=== PATIENT | male | born 1990 | race African-American/Black ===

== ENCOUNTER 2017-09-27 00:25 | Emergency (ER) | payer SELFPAY ==
[2017-09-27 01:27] LABS: ABS Basophils 0.1 10^3/ul (0-0.2); ABS Eosinophils 0 10^3/ul (0-0.6); ABS Lymphocytes 1.6 10^3/ul (1.0-4.8); ABS Monocytes 1.1 10^3/ul (0-0.8); ABS Neutrophils 10.6 10^3/ul (1.5-7.7); ABS Nucleated RBC 0 10^3/ul; Eosinophil % 0.2 % (0-6); Hematocrit 42 % (42-52); Hemoglobin 13.9 g/dl (14.0-18.0); Mean Corpuscular HGB Conc 33 g/dl (31-36); Mean Corpuscular Hemoglobin 26 pg (27-31); Mean Corpuscular Volume 78 fL (80-94); Mean Platelet Volume 7.5 um3 (7.4-10.4); Nucleated Red Blood Cells % 0.1; Platelet Count 219 10^3/ul (150-450); Red Blood Count 5.36 10^6/ul (4.00-5.40); Red Cell Distribution Width 14 % (10.5-15); White Blood Count 13.4 10^3/ul (3.5-10.8)
[2017-09-27 01:44] LABS: EGFR Non-African American 95.1 (>60)
[2017-09-27 03:06] LABS: Urine Appearance Cloudy; Urine Blood Negative (Negative); Urine Color Yellow; Urine Ketones 2+ (Negative); Urine Protein 1+(30 mg/dL) (Negative); Urine Specific Gravity 1.029 (1.010-1.030); Urine Urobilinogen Negative (Negative)
[2017-09-27] MEDS ORDERED: LORazepam INJ* 2 MG/ML 1 ML VIAL ONE (04:10)
[2017-09-27] MEDS ORDERED: diPHENhydraMINE IV* 50 MG/ML 1 ml VIAL (BENADRYL) ONE (04:10)
[2017-09-27] MEDS ORDERED: Haloperidol INJ IV/IM* 5 MG/ML AMP ONE (04:10)
--- NOTE | 2017-09-27 07:46 | RAD ---
HISTORY: ams COMPARISONS: March 09, 2009 TECHNIQUE: Multiple contiguous axial CT scans were obtained of the head without intravenous contrast. FINDINGS: HEMORRHAGE/INFARCT: There is no hemorrhage or acute infarct. MASSES/SHIFT: There is no mass or shift. EXTRA-AXIAL SPACES: There are no extra-axial fluid collections. SULCI AND VENTRICLES: The sulci and ventricles are normal in size and position for the patient's stated age. CEREBRUM: There are no focal parenchymal abnormalities. BRAINSTEM: There are no focal parenchymal abnormalities. CEREBELLUM: There are no focal parenchymal abnormalities. VESSELS: The vessels are grossly normal. PARANASAL SINUSES: The paranasal sinuses are clear. ORBITS: The orbits are unremarkable. BONES AND SOFT TISSUE: No bone or soft tissue abnormalities are noted. OTHER: None IMPRESSION: NO ACUTE INTRACRANIAL PATHOLOGY.
--- NOTE | 2017-09-27 08:06 | ED ---
Mendel Palacios Natalie, scribed for Hayden Montelongo MD on 09/27/17 at 0213 . Psychiatric Complaint - HPI Summary HPI Summary: The patient is a 26 y/o M presenting to the ED accompanied by parents c/o racing thoughts and God talking to him starting within the past week. The pt states he is feeling wonderful but his parents brought him here because they are concerned because he's "just talking weird." He denies hearing voices, although his parents report that the pt has been talking about demons and higher bennett talking to him, that he needs to get clean and get the devil out. The pt has been in the hospital before. His parents report that he had a somewhat similar psychiatric event approximately five years ago when he was using synthetic marijuana. Pt reports current use of marijuana, but doesn't specify if it's synthetic. His parents also stated that the pt hasn't been sleeping this past week, and he's had significant weight loss. He denies SI and HI, and he is not in any pain. - History Of Current Complaint Chief Complaint: EDMentalHealth Time Seen by Provider: 09/27/17 00:51 Hx Obtained From: Patient, Family/Scrap Shear Operator - parents Onset/Duration: Sudden Onset, Lasting Days, Still Present Timing: Days Severity Initially: Moderate Severity Currently: Moderate Character: Manic Aggravating Factor(s): Nothing Alleviating Factor(s): Nothing Associated Signs And Symptoms: Positive: Paranoid Behavior Has Suicidal: Denies: Thoughts Has Homicidal: Denies: Thoughts Ingestion History: Type/Name Of Drug - marijuana use - Allergies/Home Medications Allergies/Adverse Reactions: Allergies Allergy/AdvReac Type Severity Reaction Status Date / Time No Known Allergies Allergy Verified 09/27/17 00:39 PMH/Surg Hx/FS Hx/Imm Hx Endocrine/Hematology History: Denies: Hx Diabetes Cardiovascular History: Denies: Hx Hypertension Infectious Disease History: No Infectious Disease History: Denies: Traveled Outside the [place] in Last 30 Days - Family History Known Family History: Negative: Cardiac Disease - Social History Alcohol Use: Occasionally Substance Use Type: Reports: Marijuana Substance Use Comment - Amount & Last Used: daily Hx Tobacco Use: Yes Smoking Status (MU): Heavy Every Day Tobacco Smoker Review of Systems Positive: Other - abnormal weight loss Neurological: Other - sleep loss Positive: Other - POSITIVE: God talking to him; NEGATIVE: SI, HI All Other Systems Reviewed And Are Negative: Yes Physical Exam - Summary Physical Exam Summary: Appearance: Well-appearing, no distress, Well-nourished Skin: Warm, color reflects adequate perfusion Head: Normal Head/Face inspection Eyes: EOMI, PERRLA ENT: Normal inspection Neck: Supple, no nodes, no JVD. Respiratory: Lungs clear, Normal breath sounds, no respiratory distress Cardio: RRR, No murmur, pulses normal, brisk capillary refill Abdomen: soft, nontender, Bowel sounds: present Musculoskeletal: Strength Intact/ ROM intact. Neuro: AAOx3, GCS: 15 Psychological: judgement abnormal, thought process abnormal, delusions Triage Information Reviewed: Yes Vital Signs On Initial Exam: Initial Vitals Temp Pulse Resp BP Pulse Ox 98.0 F 94 20 160/94 99 09/27/17 00:36 09/27/17 00:36 09/27/17 00:36 09/27/17 00:36 09/27/17 00:36 Vital Signs Reviewed: Yes Diagnostics - Vital Signs Vital Signs Temp Pulse Resp BP Pulse Ox 09/27/17 00:36 98.0 F 94 20 160/94 99 - Laboratory Lab Results: Lab Results 09/27/17 09/27/17 Range/Units 01:17 01:17 WBC 13.4 H (3.5-10.8) 10^3/ul RBC 5.36 (4.00-5.40) 10^6/ul Hgb 13.9 L (14.0-18.0) g/dl Hct 42 (42-52) % MCV 78 L (80-94) fL MCH 26 L (27-31) pg MCHC 33 (31-36) g/dl RDW 14 (10.5-15) % Plt Count 219 (150-450) 10^3/ul MPV 7.5 (7.4-10.4) um3 Neut % (Auto) 79.1 (38-83) % Lymph % (Auto) 12.0 L (25-47) % [place] % (Auto) 8.2 H (0-7) % Eos % (Auto) 0.2 (0-6) % Baso % (Auto) 0.5 (0-2) % Absolute Neuts (auto) 10.6 H (1.5-7.7) 10^3/ul Absolute Lymphs (auto) 1.6 (1.0-4.8) 10^3/ul Absolute Monos (auto) 1.1 H (0-0.8) 10^3/ul Absolute Eos (auto) 0 (0-0.6) 10^3/ul Absolute Basos (auto) 0.1 (0-0.2) 10^3/ul Absolute Nucleated RBC 0 10^3/ul Nucleated RBC % 0.1 Sodium 138 (135-145) mmol/L Potassium 3.9 (3.5-5.0) mmol/L Chloride 105 (101-111) mmol/L Carbon Dioxide 24 (22-32) mmol/L Anion Gap 9 (2-11) mmol/L BUN 18 (6-24) mg/dL Creatinine 0.95 (0.67-1.17) mg/dL Est GFR ( Amer) 122.3 (>60) Est GFR (Non-Af Amer) 95.1 (>60) BUN/Creatinine Ratio 18.9 (8-20) Glucose 107 H (70-100) mg/dL Calcium 10.0 (8.6-10.3) mg/dL Total Bilirubin 0.70 (0.2-1.0) mg/dL AST 50 H (13-39) U/L ALT 25 (7-52) U/L Alkaline Phosphatase 86 (34-104) U/L Total Protein 7.3 (6.4-8.9) g/dL Albumin 4.8 (3.2-5.2) g/dL Globulin 2.5 (2-4) g/dL Albumin/Globulin Ratio 1.9 (1-3) Salicylates Pending Acetaminophen Pending Serum Alcohol Pending Result Diagrams: 09/27/17 01:17 09/27/17 01:17 Lab Statement: Any lab studies that have been ordered have been reviewed, and results considered in the medical decision making process. - CT Brain CT CT Interpretation: No Acute Changes - Normal exam. ED physician has reviewed this report. CT Interpretation Completed By: Radiologist - EKG 05:32 Cardiac Rate: NL EKG Rhythm: Sinus Rhythm - 73 BPM EKG Interpretation: Nml axes. Nml intervals. No ST or T wave changes. Re-Evaluation - Re-Evaluation First Eval Re-Evaluation Time: 03:05 Change: Worse Comment: Pt becoming more agitated and aggressive. Pt attempting to elope from the ED. Pt will be given IM Haldol and Ativan. Second Eval Re-Evaluation Time: 07:24 Change: Improved Comment: Pt rersting comfortably kin bed. Pt with no acute agitation. Plan for inpatient Psych placement. Course/Dx - Differential Dx/Clinical Impression Differential Diagnosis/HQI/PQRI: Positive: Acute Psychosis, Alcohol Intoxication , Anxiety, Bipolar Disorder, Depression, Schizophrenia Provider Diagnosis: Acute psychosis - Physician Notifications Instructed by Provider To: Admit As Inpatient Reason For Transfer: Patient not appropriate for [facility]. Discharge - Sign-Out/Discharge Documenting (check all that apply): Sign-Out Patient Signing out patient TO: Memo Harden - The pt is a sign-out to Dr. Harden at shift change, awaiting final disposition. - Discharge Plan Condition: Improved Referrals: No Primary Care Phys,NOPCP [Primary Care Provider] - - Billing Disposition and Condition Condition: IMPROVED The documentation as recorded by the Mendel castillo Natalie accurately reflects the service I personally performed and the decisions made by me, Hayden Montelongo MD.
--- NOTE | 2017-09-27 12:06 | PN ---
ED Flex Patient Progress Note Subjective: This is a 26 year-old M who is pending transfer to another psychiatric secondary to ____psychosis . Pt offers no complaints at this time. He had a brain CT for AMS - this appears to be w/o acute findings. Relaued results to pt and parents. He is eating lunch. Objective: Vitals: Most recent vital signs documented below. General NAD, Alert and oriented x3. Heart: rrr S1/S2 Lungs: CTA, BREATHING EASILY ab: +BS Assessment: PSYCHOSIS Plan: Pending psychiatric transfer. will follow up daily _WHILE IN ED____. Vital Signs Temp Pulse Resp BP Pulse Ox 97.7 F 57 14 113/72 100 09/27/17 11:46 09/27/17 11:46 09/27/17 08:20 09/27/17 11:46 09/27/17 08:20 Lab Results - Entire Visit 09/27/17 09/27/17 09/27/17 02:50 02:50 01:17 WBC RBC Hgb Hct MCV MCH MCHC RDW Plt Count MPV Neut % (Auto) Lymph % (Auto) [place] % (Auto) Eos % (Auto) Baso % (Auto) Absolute Neuts (auto) Absolute Lymphs (auto) Absolute Monos (auto) Absolute Eos (auto) Absolute Basos (auto) Absolute Nucleated RBC Nucleated RBC % Sodium 138 Potassium 3.9 Chloride 105 Carbon Dioxide 24 Anion Gap 9 BUN 18 Creatinine 0.95 Est GFR ( Amer) 122.3 Est GFR (Non-Af Amer) 95.1 BUN/Creatinine Ratio 18.9 Glucose 107 H Calcium 10.0 Total Bilirubin 0.70 AST 50 H ALT 25 Alkaline Phosphatase 86 Total Protein 7.3 Albumin 4.8 Globulin 2.5 Albumin/Globulin Ratio 1.9 Urine Color Yellow Urine Appearance Cloudy Urine pH 5.0 Ur Specific [place] 1.029 Urine Protein 1+(30 mg/dl) A Urine Ketones 2+ A Urine Blood Negative Urine Nitrate Negative Urine Bilirubin Negative Urine Urobilinogen Negative Ur Leukocyte Esterase Negative Urine WBC (Auto) Trace(0-5/hpf) Urine RBC (Auto) Trace(0-2/hpf) Ur Squamous Epith Cells Present A Urine Bacteria Absent Hyaline Casts Present A Urine Glucose Negative Salicylates < 2.50 Urine Opiates Screen None detected Acetaminophen < 15 Ur Barbiturates Screen None detected Ur Phencyclidine Scrn None detected Ur Amphetamines Screen None detected U Benzodiazepines Scrn None detected Urine Cocaine Screen None detected U Cannabinoids Screen Presumptive positive A Serum Alcohol < 10 09/27/17 01:17 WBC 13.4 H RBC 5.36 Hgb 13.9 L Hct 42 MCV 78 L MCH 26 L MCHC 33 RDW 14 Plt Count 219 MPV 7.5 Neut % (Auto) 79.1 Lymph % (Auto) 12.0 L [place] % (Auto) 8.2 H Eos % (Auto) 0.2 Baso % (Auto) 0.5 Absolute Neuts (auto) 10.6 H Absolute Lymphs (auto) 1.6 Absolute Monos (auto) 1.1 H Absolute Eos (auto) 0 Absolute Basos (auto) 0.1 Absolute Nucleated RBC 0 Nucleated RBC % 0.1 Sodium Potassium Chloride Carbon Dioxide Anion Gap BUN Creatinine Est GFR ( Amer) Est GFR (Non-Af Amer) BUN/Creatinine Ratio Glucose Calcium Total Bilirubin AST ALT Alkaline Phosphatase Total Protein Albumin Globulin Albumin/Globulin Ratio Urine Color Urine Appearance Urine pH Ur Specific [place] Urine Protein Urine Ketones Urine Blood Urine Nitrate Urine Bilirubin Urine Urobilinogen Ur Leukocyte Esterase Urine WBC (Auto) Urine RBC (Auto) Ur Squamous Epith Cells Urine Bacteria Hyaline Casts Urine Glucose Salicylates Urine Opiates Screen Acetaminophen Ur Barbiturates Screen Ur Phencyclidine Scrn Ur Amphetamines Screen U Benzodiazepines Scrn Urine Cocaine Screen U Cannabinoids Screen Serum Alcohol
[2017-09-27] MEDS ORDERED: KETAMINE HCL* 50 MG/ML 10 ML VIAL ONE (16:38)
[2017-09-27] MEDS: KETAMINE HCL* 50 MG/ML 10 ML VIAL IM ONE ×2 (16:53→16:59)
[2017-09-27] MEDS ORDERED: KETAMINE HCL* 50 MG/ML 10 ML VIAL IV ONE (17:00)
[2017-09-27] MEDS ORDERED: KETAMINE HCL* 50 MG/ML 10 ML VIAL IM ONE (17:00)
--- NOTE | 2017-09-27 17:56 | ED ---
I, Alba Porter, scribed for Memo Harden MD on 09/27/17 at 1704 . Progress - Progress Note Progress Note: Pt became agitated and tried to leave. He required Ketamine medication after not being able to be talked down. Formal involuntary paperwork was signed. - Consult/PCP Time Called: 03:30 Re-Evaluation - Re-Evaluation First Eval Re-Evaluation Time: 03:05 Change: Worse Comment: Pt becoming more agitated and aggressive. Pt attempting to elope from the ED. Pt will be given IM Haldol and Ativan. Second Eval Re-Evaluation Time: 07:24 Change: Improved Comment: Pt rersting comfortably kin bed. Pt with no acute agitation. Plan for inpatient Psych placement. Course/Dx - Course Course Of Treatment: Patient being held for psychosis. No formal paperwork was signed and so involuntary paperwork was signed by me. He is pending bed search for placement for acute psychosis. The patient became more more agitated as he wanted to leave and go outside to smoke. He was threatening to staff members and we felt he posted danger to others. He required medication after rear unable to talk him down. He is to force shown and he agreed to medication. Ketamine intramuscular was given and the patient grew sedate. He is signed out in stable condition to the oncoming ER physician. - Diagnoses Provider Diagnoses: Acute psychosis - Provider Notifications Instructed by Provider To: Admit As Inpatient Reason For Transfer: Patient not appropriate for [facility]. Discharge - Sign-Out/Discharge Documenting (check all that apply): Sign-Out Patient Signing out patient TO: Hayden Montelongo Receiving patient FROM: Memo Harden - Discharge Plan Condition: Stable Referrals: No Primary Care Phys,NOPCP [Primary Care Provider] - - Billing Disposition and Condition Condition: STABLE The documentation as recorded by the German castillo Jade accurately reflects the service I personally performed and the decisions made by me, Memo Harden MD.
[2017-09-28] MEDS ORDERED: Mouth Piece, Nicotine* 1 EACH CARTRIDGE INH PRN (09:41)
[2017-09-28] MEDS ORDERED: Nicotine Inhaler* 10 MG AMP INH PRN (09:41)
[2017-09-28] MEDS ORDERED: Mouth Piece, Nicotine* 1 EACH CARTRIDGE ONE (09:44)
[2017-09-28] MEDS ORDERED: Nicotine Inhaler* 10 MG AMP ONE (09:44)
--- NOTE | 2017-09-28 10:30 | ED ---
German Palacios Jade, scribed for Oh Gustafson MD on 09/28/17 at 1027 . Progress - Progress Note Progress Note: Pt is awake and alert. He is now medically cleared. General: well-appearing, no pain distress Skin: warm, color reflects adequate perfusion, dry Head: normal Eyes: EOMI, M[place]ORY ENT: normal Neck: supple, nontender Respiratory: CTA, breath sounds present Cardiovascular: RRR Abdomen: soft, nontender Bowel: present Musculoskeletal: normal, strength/ROM intact Neurological: sensory/motor intact, A&O x3 Psychological: affect/mood appropriate - Consult/PCP Time Called: 03:30 Re-Evaluation - Re-Evaluation First Eval Change: Worse Second Eval Change: Improved Course/Dx - Course Course Of Treatment: Medical evaluation today is normal and the patient is medically clear for MHE and mental health treatment. - Diagnoses Provider Diagnoses: Mental health problem Discharge - Sign-Out/Discharge Documenting (check all that apply): Discharge/Admit/Transfer - Transfer Receiving patient FROM: Memo Hauserkley - Discharge Plan Condition: Stable Disposition: TRANS HIGHER LVL OF CARE FAC Referrals: No Primary Care Phys,NOPCP [Primary Care Provider] - - Billing Disposition and Condition Condition: STABLE Disposition: Trans Higher Lvl of Care Fac The documentation as recorded by the German castillo Jade accurately reflects the service I personally performed and the decisions made by , Oh Gustafson MD.
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
[2017-09-28 19:07] VITALS: BP 129/74
== END 2017-09-28 19:14 | disposition short-term general hospital (02) ==
LOC: ED 00:25
DX: F23 Brief psychotic disorder (principal); F12.10 Cannabis abuse, uncomplicated
CPT/HCPCS: 36415; 70450; 80053; 80307; 80320; 80329; 81003; 81015; 85025; 87086; 93005; 96374; 96375; 99285; A9270-GY; G0480; J1200; J1630; J2060

== ENCOUNTER 2019-04-26 13:25 | Emergency (ER) | payer BC, MEDICAID ==
--- NOTE | 2019-04-26 13:42 | ED ---
HPI Chest Pain - HPI Summary HPI Summary: Pt is a 28 y/o M presenting to the ED with a chief complaint of chest pain initially onset hours ago, described as someone squeezing his heart. Pt states this happens to him occasionally, not brought on by anything or alleviated by anything. He states it lasts anywhere from 30-45 seconds, and brings on nausea and lightheadedness. - History of Current Complaint Chief Complaint: EDChestPainROMI Time Seen by Provider: 04/26/19 13:32 Hx Obtained From: Patient Onset/Duration: Started Hours Ago, Resolved Timing: Intermittent, Lasting Seconds Initial Severity: Moderate Current Severity: Mild Pain Intensity: 3 Pain Scale Used: 0-10 Numeric Chest Pain Location: Left Anterior Chest Pain Radiates: No Character: Pressure/Squeezing Aggravating Factor(s): Nothing Alleviating Factor(s): Nothing Associated Signs and Symptoms: Positive: Chest Pain, Lightheadedness, Nausea - Allergy/Home Medications Allergies/Adverse Reactions: Allergies Allergy/AdvReac Type Severity Reaction Status Date / Time No Known Allergies Allergy Verified 09/27/17 00:39 PMH/Surg Hx/FS Hx/Imm Hx Previously Healthy: Yes Endocrine/Hematology History: Denies: Hx Diabetes Cardiovascular History: Denies: Hx Hypertension Infectious Disease History: No Infectious Disease History: Denies: Traveled Outside the [place] in Last 30 Days - Family History Known Family History: Positive: Cardiac Disease, Hypertension, Diabetes - Social History Alcohol Use: Occasionally Hx Substance Use: Yes Substance Use Type: Reports: Marijuana Substance Use Comment - Amount & Last Used: daily Hx Tobacco Use: Yes Smoking Status (MU): Heavy Every Day Tobacco Smoker Review of Systems Positive: Chest Pain Positive: Nausea Neurological: Other - lightheadedness All Other Systems Reviewed And Are Negative: Yes Physical Exam - Summary Physical Exam Summary: VITAL SIGNS: Reviewed. GENERAL: Patient is a well-developed and nourished male who is lying comfortable in the stretcher. Patient is not in any acute respiratory distress. HEAD AND FACE: No signs of trauma. No ecchymosis, hematomas or skull depressions. No sinus tenderness.. EYES: PERRLA, EOMI x 2, No injected conjunctiva, no nystagmus. EARS: Hearing grossly intact. Ear canals and tympanic membranes are within normal limits. MOUTH: Oropharynx within normal limits. NECK: Supple, trachea is midline, no adenopathy, no JVD, no carotid bruit, no c- spine tenderness, neck with full ROM. CHEST: Symmetric, no tenderness at palpation. LUNGS: Clear to auscultation bilaterally. No wheezing or crackles. CVS: Regular rate and rhythm, S1 and S2 present, no murmurs or gallops appreciated. ABDOMEN: Soft, non-tender. No signs of distention. No rebound, no guarding, and no masses palpated. Bowel sounds are normal. EXTREMITIES: FROM in all major joints, no edema, no cyanosis or clubbing. NEURO: Alert and oriented x 3. No acute neurological deficits. Speech is normal and follows commands. SKIN: Dry and warm. Triage Information Reviewed: Yes Vital Signs On Initial Exam: Initial Vitals Temp Pulse Resp BP Pulse Ox 98.4 F 86 17 139/64 100 04/26/19 13:30 04/26/19 13:30 04/26/19 13:30 04/26/19 13:30 04/26/19 13:30 Vital Signs Reviewed: Yes Procedures - Sedation Patient Received Moderate/Deep Sedation with Procedure: No Diagnostics - Vital Signs Vital Signs Temp Pulse Resp BP Pulse Ox 04/26/19 13:30 98.4 F 86 17 139/64 100 - Laboratory Result Diagrams: 04/26/19 13:42 04/26/19 13:42 Lab Statement: Any lab studies that have been ordered have been reviewed, and results considered in the medical decision making process. - Radiology CXR Radiology Interpretation Completed By: Radiologist Summary of Radiographic Findings: No evidence for acute disease. ED physician has reviewed this report. - EKG 1328 Cardiac Rate: NL - 84bpm EKG Rhythm: Sinus Rhythm ST Segment: Normal Ectopy: None Summary of EKG Findings: EKG at 1328 shows NSR at 84bpm with no ST elevations and nml axis. Dr. Peterson has reviewed and interpreted this EKG. Chest Pain Course/Dx - Course Assessment/Plan: Pt is a 28 y/o M presenting to the ED with a chief complaint of chest pain initially onset hours ago, described as someone squeezing his heart. Pt states this happens to him occasionally, not brought on by anything or alleviated by anything. He states it lasts anywhere from 30-45 seconds, and brings on nausea and lightheadedness. Blood work without a significant abnormality. The troponin is 0. EKG shows a normal sinus rhythm without any ST elevation. Chest x-ray impression: No acute pathology. Patient reports that all symptoms have resolved. Patient Heart score is: 0 therefore, low suspicion for CAD. Patient is not hypoxic or tachycardic. Wells criteria 0 Therefore, no suspicion for PE. Patient has no abdominal bruit thus no suspicion for AAA. Patients pain does not radiate to the back and pain has resolved thus low suspicion for aortic dissection. I discussed all the findings and test results with the patient. Patient was instructed to return to the emergency room immediately if any of the symptoms return or worsen. Patient understands and agrees. Plan of care was discussed with the patient and patient understands and agrees. All questions were answered at patient satisfaction. There were no further complaints or concerns. PE before discharge : CVS: S1 and S2 present. No murmurs appreciated. Abdominal exam before discharge: Soft, non-tender. No signs of distention. No rebound no guarding, and no masses palpated. Bowel sounds are normal. Patient is alert and oriented x 3. Patient is hemodynamically stable. - Chest Pain Differential Diagnosis/HQI/PQRI: Acute CA, ACS, Angina, CHF, Chest Wall, GI Disease - Diagnoses Provider Diagnoses: Atypical chest pain Discharge ED - Sign-Out/Discharge Documenting (check all that apply): Patient Departure - Discharge Plan Condition: Stable Disposition: HOME Patient Education Materials: Chest Pain (ED) Referrals: [facility] [Outside] Additional Instructions: Please follow up with your primary care provider within the next 1-3 days. Return to the emergency department with any new or worsening symptoms. - Billing Disposition and Condition Condition: STABLE Disposition: Home - Attestation Statements Document Initiated by Olga: Yes Documenting Scribe: Monique Stearns Provider For Whom Olga is Documenting (Include Credential): Cesar Peterson MD. Scribe Attestation: Monique Palacios scribed for Cesar Peterson MD. on 04/26/19 at 2038. Scribe Documentation Reviewed: Yes Provider Attestation: The documentation as recorded by the Monique castillo accurately reflects the service I personally performed and the decisions made by , Cesar Peterson MD. Status of Scribe Document: Viewed
[2019-04-26 13:58] LABS: ABS Eosinophils 0.2 10^3/ul (0-0.6); ABS Lymphocytes 1.2 10^3/ul (1.0-4.8); ABS Monocytes 0.5 10^3/ul (0-0.8); ABS Neutrophils 4.1 10^3/ul (1.5-7.7); Eosinophil % 2.7 %; Hematocrit 45 % (42-52); Hemoglobin 14.9 g/dL (14.0-18.0); Lymphocyte % 20.6 %; Mean Corpuscular HGB Conc 33 g/dL (31-36); Mean Corpuscular Hemoglobin 26 pg (27-31); Mean Corpuscular Volume 79 fL (80-94); Mean Platelet Volume 7.3 fL (7.4-10.4); Nucleated Red Blood Cells % 0.1; Platelet Count 235 10^3/uL (150-450); Red Blood Count 5.69 10^6 /uL (4.18-5.48); Red Cell Distribution Width 13 % (10-15)
[2019-04-26 14:03] LABS: INR 1.14 (0.82-1.09)
[2019-04-26 14:13] LABS: Albumin 4.6 g/dL (3.2-5.2); Albumin/Globulin Ratio 1.8 (1-3); BUN/Creatinine Ratio 15.2 (8-20); Calcium 9.6 mg/dL (8.6-10.3); EGFR African American 117.7 (>60); EGFR Non-African American 97.3 (>60); Globulin 2.6 g/dL (2-4); Potassium 4.1 mmol/L (3.5-5.0); Total Bilirubin 0.4 mg/dL (0.2-1.0); Total Protein 7.2 g/dL (6.4-8.9)
[2019-04-26 16:25] VITALS: BP 122/77
== END 2019-04-26 16:25 | disposition home or self-care (01) ==
LOC: ED 13:25
DX: R07.89 Other chest pain (principal); R11.0 Nausea; R42 Dizziness and giddiness; F17.210 Nicotine dependence, cigarettes, uncomplicated
CPT/HCPCS: 36415; 71045; 80053; 84484; 85025; 85610; 93005; 99282